=== PATIENT | female | born 1970 | race Caucasian/White ===

== ENCOUNTER 2021-10-08 11:32 | Day surgery (SDC) | payer OTHER ==
[2021-10-08 12:02] VITALS: BMI 26.2
[2021-10-08 13:15] VITALS: TEMP 97
[2021-10-08 13:28] VITALS: BP 120/78; PULSE 61
== END 2021-10-08 13:29 | disposition home or self-care (01) ==
LOC: FASU-ENDO 11:32
PROVIDERS: ATTEND Internal Medicine Gastroenterology
PROC: 0DBN8ZX Excision of Sigmoid Colon, Via Natural or Artificial Opening Endoscopic, Diagnostic (ICD-10-PCS; principal; 2021-10-08 12:32)
DX: Z12.11 Encounter for screening for malignant neoplasm of colon (principal); D12.5 Benign neoplasm of sigmoid colon; K64.0 First degree hemorrhoids; K64.8 Other hemorrhoids
CPT/HCPCS: 88305-TC